=== PATIENT | female | born 1960 | race Caucasian/White ===

== ENCOUNTER 2019-03-08 16:18 | Inpatient (IN) ==
[2019-03-08] MEDS ORDERED: methylPREDNISolone SOD SUC 125 MG/2 ML VIAL IV STA (17:21)
[2019-03-08] MEDS ORDERED: LEVOFLOXACIN INJ 500 MG in PREMIX 1 EACH IV STA (17:21)
[2019-03-08] MEDS ORDERED: ALBUTEROL/IPRATROPIUM 3 ML NEB RESP TX STA ×3 (17:21→18:43)
[2019-03-08 17:34] LABS: Basophils # 0.1 10*3/uL (0.0-0.2); Basophils % 0.4 % (0.0-0.8); Eosinophils % 0.2 % (0.00-10.9); Hematocrit 49.5 VOL% (35.7-47.0); Hemoglobin 15.2 GM/DL (12.0-16.0); Immature Granulocytes % 0.6 %; Immature Granulocytes Absolute 0.07 #; Lymphocytes # 1.4 10*3/uL (1.4-4.0); Lymphocytes % 11.4 % (21.3-54.2); Mean Corpuscular HGB Conc 30.7 GM/DL (32-36); Mean Corpuscular Volume 91.2 FL (87-102); Mean Platelet Volume 9.7 FL (9.6-12.0); Monocytes % 3.3 % (1.7-12.7); Neutrophils % 84.1 % (38.7-73.9); Platelet Count 249 T/CUMM (130-400); Red Blood Count 5.43 MC/CUMM (3.8-5.5); Red Cell Distribution Width 15.8 % (9.3-17.3); White Blood Count 12.2 T/CUMM (4-12)
[2019-03-08 17:57] LABS: Albumin 3.5 G/DL (3.4-5.0); Bilirubin,Total 0.4 MG/DL (0.2-1.0); Calcium 8.8 MG/DL (8.5-10.1); Osmolality,Calculated 253.2 MOS/KG (273-304); Total Protein 7.4 G/DL (6.4-8.3)
[2019-03-08 18:05] LABS: ABG Base Excess 7.7 MMOL/L (-2.5-2.5); ABG HCO3 31.4 MMOL/L (20-26); ABG Oxygen Saturation 96.1 % (95-100); ABG PH 7.261 (7.35-7.45); ABG TCO2 34.7 MMOL/L (23-27); Allen Test Positive
[2019-03-08] MEDS ORDERED: NITROGLYCERIN SL 0.4 MG TABLET SL STA (18:44)
[2019-03-08] MEDS ORDERED: ACETAMINOPHEN 500 MG TABLET PO STA (19:10)
[2019-03-08] MEDS ORDERED: ACETAMINOPHEN 500 MG TABLET ONE (19:11)
[2019-03-08] MEDS ORDERED: ALBUTEROL 2.5 MG/3 ML NEB RESP TX PRN (19:34)
[2019-03-08] MEDS ORDERED: ACETAMINOPHEN 325 MG TABLET PO PRN (19:34)
[2019-03-08] MEDS ORDERED: ONDANSETRON 4 MG/2 ML VIAL IV PRN (19:34)
[2019-03-08] MEDS ORDERED: ALBUTEROL NEB SOLN 5 MG/ML 20 ML/BOTTLE CONT NEB STA (19:52)
[2019-03-08] MEDS: methylPREDNISolone SOD SUC 40 MG/1 ML VIAL IV SCH (21:28)
[2019-03-08] MEDS: ENOXAPARIN 40 MG/0.4 ML SYRINGE SUBCUT SCH (21:28)
[2019-03-08] MEDS ORDERED: hydrALAZINE 20 MG/1 ML VIAL IV PRN (22:48)
[2019-03-09] MEDS: ALBUTEROL/IPRATROPIUM 3 ML NEB RESP TX SCH ×4 (01:57→19:23)
[2019-03-09] MEDS: methylPREDNISolone SOD SUC 40 MG/1 ML VIAL IV SCH ×4 (04:27→21:03)
[2019-03-09 05:40] LABS: ABG PCO2 88.9 MM HG (35-48)
[2019-03-09 07:26] LABS: ABG Base Excess 10.6 MMOL/L (-2.5-2.5); ABG HCO3 34.2 MMOL/L (20-26); ABG Oxygen Saturation 93.2 % (95-100); ABG PH 7.329 (7.35-7.45); ABG PO2 68.8 MM HG (80-95); ABG TCO2 35.4 MMOL/L (23-27); Allen Test Positive; Pt O2 Delivery Device BIPAP
[2019-03-09 07:32] LABS: ABG PCO2 78.7 MM HG (35-48)
[2019-03-09 07:58] LABS: Hemoglobin 15.1 GM/DL (12.0-16.0); Immature Granulocytes % 0.4 %; Immature Granulocytes Absolute 0.03 #; Lymphocytes # 0.7 10*3/uL (1.4-4.0); Lymphocytes % 10.2 % (21.3-54.2); Mean Corpuscular HGB Conc 30.8 GM/DL (32-36); Mean Corpuscular Volume 90.1 FL (87-102); Mean Platelet Volume 10.3 FL (9.6-12.0); Monocytes % 1.7 % (1.7-12.7); Neutrophils % 87.7 % (38.7-73.9); Platelet Count 257 T/CUMM (130-400); Red Blood Count 5.44 MC/CUMM (3.8-5.5); Red Cell Distribution Width 15.2 % (9.3-17.3); White Blood Count 6.9 T/CUMM (4-12)
[2019-03-09 08:26] LABS: Osmolality,Calculated 264.4 MOS/KG (273-304)
[2019-03-09] MEDS: PANTOPRAZOLE 40 MG TABLET PO SCH (09:29)
[2019-03-09] MEDS: DULoxetine 30 MG CAPSULE PO SCH (09:29)
[2019-03-09] MEDS: MONTELUKAST 10 MG TABLET PO SCH (09:29)
[2019-03-09 10:04] LABS: Free T4 (Free Thyroxine) 0.92 NG/DL (0.76-1.46); Thyroid Stimulating Hormone 0.438 uIU/ml (0.358-3.74)
[2019-03-09] MEDS ORDERED: AMINOPHYLLINE 250 MG in SODIUM CHLORIDE 0.9% 100 ML IV ONE (10:30)
[2019-03-09] MEDS ORDERED: cefTRIAXone 1,000 MG in SYRINGE 1 EACH IV SCH (10:30)
[2019-03-09 11:26] LABS: ABG Base Excess 9.9 MMOL/L (-2.5-2.5); ABG HCO3 33.7 MMOL/L (20-26); ABG Oxygen Saturation 98.6 % (95-100); ABG PH 7.282 (7.35-7.45); ABG TCO2 36.4 MMOL/L (23-27); Allen Test Positive
[2019-03-09 11:31] LABS: ABG PCO2 89.2 MM HG (35-48)
[2019-03-09 13:01] LABS: ABG Base Excess 6.9 MMOL/L (-2.5-2.5); ABG HCO3 30.2 MMOL/L (20-26); ABG Oxygen Saturation 82.3 % (95-100); ABG PH 7.283 (7.35-7.45); ABG PO2 49.4 MM HG (80-95); ABG TCO2 33.1 MMOL/L (23-27); Allen Test Positive
[2019-03-09 13:03] LABS: ABG PCO2 80.7 MM HG (35-48)
[2019-03-09 13:58] LABS: Barbiturates Screen,Urine Negative (Negative); Benzodiazepines Screen,Urine Negative (Negative); Cannabinoid Screen,Urine Negative (Negative); Opiate Screen,Urine Negative (Negative); Phencyclidine Screen,Urine Negative (Negative)
[2019-03-09] MEDS ORDERED: AMINOPHYLLINE 500 MG in SODIUM CHLORIDE 0.9% 480 ML IV SCH (14:00)
[2019-03-09 15:32] LABS: ABG Base Excess 6.6 MMOL/L (-2.5-2.5); ABG HCO3 29.9 MMOL/L (20-26); ABG Oxygen Saturation 79.3 % (95-100); ABG PH 7.318 (7.35-7.45); ABG PO2 45.5 MM HG (80-95); ABG TCO2 31.4 MMOL/L (23-27); Allen Test Positive; Pt O2 Delivery Device BIPAP
[2019-03-09 15:36] LABS: ABG PCO2 71.1 MM HG (35-48)
[2019-03-09] MEDS ORDERED: LEVOFLOXACIN INJ 500 MG in PREMIX 1 EACH IV SCH (18:00)
[2019-03-09] MEDS: ENOXAPARIN 40 MG/0.4 ML SYRINGE SUBCUT SCH (21:03)
[2019-03-10] MEDS: ALBUTEROL/IPRATROPIUM 3 ML NEB RESP TX SCH ×4 (01:41→21:16)
[2019-03-10 03:53] LABS: ABG Base Excess 4.2 MMOL/L (-2.5-2.5); ABG HCO3 27.8 MMOL/L (20-26); ABG Oxygen Saturation 87.7 % (95-100); ABG PCO2 56.2 MM HG (35-48); ABG PH 7.359 (7.35-7.45); Allen Test Positive; Pt O2 Delivery Device BIPAP
[2019-03-10 04:03] LABS: Calcium 8.8 MG/DL (8.5-10.1); Osmolality,Calculated 267.4 MOS/KG (273-304)
[2019-03-10] MEDS: methylPREDNISolone SOD SUC 40 MG/1 ML VIAL IV SCH ×2 (04:08→09:06)
[2019-03-10 04:33] LABS: Basophils % 0.2 % (0.0-0.8); Hematocrit 49.8 VOL% (35.7-47.0); Hemoglobin 15.3 GM/DL (12.0-16.0); Immature Granulocytes % 0.6 %; Immature Granulocytes Absolute 0.06 #; Lymphocytes # 0.7 10*3/uL (1.4-4.0); Lymphocytes % 7.1 % (21.3-54.2); Mean Corpuscular HGB Conc 30.7 GM/DL (32-36); Mean Corpuscular Volume 90.5 FL (87-102); Mean Platelet Volume 10.2 FL (9.6-12.0); Neutrophils % 88.1 % (38.7-73.9); Platelet Count 268 T/CUMM (130-400); Red Cell Distribution Width 15.4 % (9.3-17.3)
[2019-03-10] MEDS: MONTELUKAST 10 MG TABLET PO SCH (09:03)
[2019-03-10] MEDS: DULoxetine 30 MG CAPSULE PO SCH (09:03)
[2019-03-10] MEDS: PANTOPRAZOLE 40 MG TABLET PO SCH (09:03)
[2019-03-10] MEDS: THEOPHYLLINE ER 300 MG TABLET PO SCH ×2 (10:39→18:12)
[2019-03-10] MEDS: ENOXAPARIN 40 MG/0.4 ML SYRINGE SUBCUT SCH (21:33)
[2019-03-10] MEDS ORDERED: methylPREDNISolone SOD SUC 40 MG/1 ML VIAL IV SCH (22:00)
[2019-03-11] MEDS: ALBUTEROL/IPRATROPIUM 3 ML NEB RESP TX SCH ×2 (02:01→06:55)
[2019-03-11 04:57] LABS: Basophils % 0.1 % (0.0-0.8); Eosinophils # 0.1 10*3/uL (0.0-0.87); Eosinophils % 0.4 % (0.00-10.9); Hematocrit 48.7 VOL% (35.7-47.0); Hemoglobin 15.1 GM/DL (12.0-16.0); Immature Granulocytes % 0.4 %; Immature Granulocytes Absolute 0.05 #; Lymphocytes # 2.9 10*3/uL (1.4-4.0); Lymphocytes % 20.9 % (21.3-54.2); Mean Corpuscular Volume 88.5 FL (87-102); Mean Platelet Volume 10.3 FL (9.6-12.0); Monocytes % 10.1 % (1.7-12.7); Neutrophils % 68.1 % (38.7-73.9); Platelet Count 280 T/CUMM (130-400); Red Cell Distribution Width 15.4 % (9.3-17.3)
[2019-03-11 05:19] LABS: Calcium 8.8 MG/DL (8.5-10.1)
[2019-03-11] MEDS ORDERED: LEVOFLOXACIN INJ 750 MG in PREMIX 1 EACH IV SCH (09:00)
[2019-03-11] MEDS ORDERED: POTASSIUM CHLORIDE 20 MEQ TABLET PO ONE (09:00)
[2019-03-11] MEDS: DULoxetine 30 MG CAPSULE PO SCH (09:29)
[2019-03-11] MEDS: PANTOPRAZOLE 40 MG TABLET PO SCH (09:29)
[2019-03-11] MEDS: THEOPHYLLINE ER 300 MG TABLET PO SCH (09:29)
[2019-03-11] MEDS: MONTELUKAST 10 MG TABLET PO SCH (09:30)
[2019-03-11] MEDS ORDERED: acetaZOLAMIDE 250 MG TABLET PO SCH (10:30)
[2019-03-11 11:07] LABS: Apearance,Urine CLEAR (Clear); Bilirubin,Urine Negative (Negative); Blood, Urine Negative (Negative); Glucose,Urine (UA) Negative (Negative); Ketones,Urine Negative (Negative); Mucus,Urine Occasional /LPF (Occasional); Nitrite,Urine Negative (Negative); Protein,Urine Negative; RBC,Urine 1 /HPF (0-4); Squamous Epithelial Cell,Urine Occasional /HPF (0-10); Urine Color Yellow (Yellow); Urine Specific Gravity 1.013 (1.001-1.035); Urine Urobilinogen < 2.0 EU/DL (0.2-1.0); WBC,Urine 1 /HPF (0-6)
[2019-03-11 11:31] VITALS: BP 126/87
[2019-03-12] MEDS ORDERED: POTASSIUM CHLORIDE 10 MEQ TABLET PO SCH (09:00)
== END 2019-03-11 13:35 | disposition home or self-care (01) | DRG 133 ==
LOC: N.ED 16:18 → SUATTDRO 19:34 → N.EDINP 19:34 → N.ICU 20:04 → N.2E 03-10 11:54
PROVIDERS: ADMIT Internal Medicine; ATTEND Internal Medicine

== ENCOUNTER 2019-07-05 18:47 | Inpatient (IN) ==
[2019-07-05] MEDS ORDERED: PANTOPRAZOLE 40 MG VIAL IV STA (20:41)
[2019-07-05] MEDS ORDERED: ONDANSETRON 4 MG/2 ML VIAL IV STA (20:41)
[2019-07-05] MEDS ORDERED: ALBUTEROL/IPRATROPIUM 3 ML NEB RESP TX STA (20:41)
[2019-07-05] MEDS ORDERED: SODIUM CHLORIDE 0.9% 500 ML IV STA (20:41)
[2019-07-05] MEDS ORDERED: HYDROmorphone 2 MG/1 ML VIAL IV STA (20:41)
[2019-07-05] MEDS ORDERED: methylPREDNISolone SOD SUC 125 MG/2 ML VIAL IV STA (20:41)
[2019-07-05 21:04] LABS: Basophils # 0.1 10*3/uL (0.0-0.2); Basophils % 0.6 % (0.0-0.8); Eosinophils # 1.6 10*3/uL (0.0-0.87); Eosinophils % 17.1 % (0.00-10.9); Hematocrit 48.1 VOL% (35.7-47.0); Hemoglobin 14.9 GM/DL (12.0-16.0); Immature Granulocytes % 0.3 %; Immature Granulocytes Absolute 0.03 #; Lymphocytes # 2.8 10*3/uL (1.4-4.0); Lymphocytes % 29.3 % (21.3-54.2); Mean Corpuscular Volume 89.6 FL (87-102); Mean Platelet Volume 9.3 FL (9.6-12.0); Monocytes % 9.6 % (1.7-12.7); Neutrophils % 43.1 % (38.7-73.9); Platelet Count 282 T/CUMM (130-400); Red Blood Count 5.37 MC/CUMM (3.8-5.5); Red Cell Distribution Width 14.6 % (9.3-17.3); White Blood Count 9.4 T/CUMM (4-12)
[2019-07-05 21:24] LABS: Albumin 3.6 G/DL (3.4-5.0); Bilirubin,Total 0.5 MG/DL (0.2-1.0); Calcium 8.6 MG/DL (8.5-10.1); Osmolality,Calculated 267.1 MOS/KG (273-304)
[2019-07-05 21:27] LABS: Band Neutrophils 2 % (0-10); Eosinophils 16 % (0-10); Lymphocytes 31 % (20-55); Segmented Neutrophils 46 % (50-85); Total Cells Counted 100
[2019-07-05 21:28] LABS: Anisocytosis 1+; Platelet Estimate Normal; Target Cells Few
[2019-07-05] MEDS ORDERED: hydrALAZINE 20 MG/1 ML VIAL ONE (21:40)
[2019-07-05] MEDS ORDERED: hydrALAZINE 20 MG/1 ML VIAL IV STA (21:48)
[2019-07-05] MEDS ORDERED: ALBUTEROL NEB SOLN 5 MG/ML 20 ML/BOTTLE CONT NEB STA (22:15)
[2019-07-05 22:41] LABS: ABG Base Excess 0.6 MMOL/L (-2.5-2.5); ABG HCO3 24.9 MMOL/L (20-26); ABG Oxygen Saturation 93.4 % (95-100); ABG PO2 86.9 MM HG (80-95); ABG TCO2 33.1 MMOL/L (23-27)
[2019-07-05 22:45] LABS: ABG PH 7.117 (7.35-7.45)
[2019-07-05] MEDS ORDERED: ETOMIDATE 20 MG/10 ML VIAL IV ONE (22:49)
[2019-07-05] MEDS ORDERED: VECURONIUM 10 MG VIAL IV ONE (22:49)
[2019-07-05] MEDS ORDERED: ETOMIDATE 20 MG/10 ML VIAL IV STA (23:00)
[2019-07-05] MEDS ORDERED: VECURONIUM 10 MG VIAL IV STA (23:00)
[2019-07-06 00:16] LABS: Apearance,Urine CLEAR (Clear); Bilirubin,Urine Negative (Negative); Blood, Urine Negative (Negative); Glucose,Urine (UA) Negative (Negative); Hyaline Casts,Urine 4 /LPF (0-3); Ketones,Urine Negative (Negative); Mucus,Urine Occasional /LPF (Occasional); Nitrite,Urine Negative (Negative); Protein,Urine Negative; RBC,Urine 1 /HPF (0-4); Squamous Epithelial Cell,Urine Occasional /HPF (0-10); Urine Color Yellow (Yellow); Urine Specific Gravity > 1.060 (1.001-1.035); Urine Urobilinogen < 2.0 EU/DL (0.2-1.0); WBC,Urine 1 /HPF (0-6)
[2019-07-06] MEDS ORDERED: ALBUTEROL 2.5 MG/3 ML NEB RESP TX PRN (00:19)
[2019-07-06] MEDS ORDERED: hydrALAZINE 20 MG/1 ML VIAL IV PRN (00:29)
[2019-07-06] MEDS ORDERED: ONDANSETRON 4 MG/2 ML VIAL IV PRN (00:29)
[2019-07-06 01:12] LABS: ABG Base Excess 4.8 MMOL/L (-2.5-2.5); ABG HCO3 28.8 MMOL/L (20-26); ABG PCO2 65.4 MM HG (35-48); ABG PH 7.322 (7.35-7.45)
[2019-07-06] MEDS: ALBUTEROL/IPRATROPIUM 3 ML NEB RESP TX SCH ×4 (02:05→19:18)
[2019-07-06 03:10] LABS: ABG Base Excess 5.5 MMOL/L (-2.5-2.5); ABG HCO3 29.4 MMOL/L (20-26); ABG Oxygen Saturation 99.8 % (95-100); ABG PCO2 64.4 MM HG (35-48); ABG PH 7.334 (7.35-7.45); ABG TCO2 29.3 MMOL/L (23-27); Allen Test Positive; Pt O2 Delivery Device Ventilator
[2019-07-06 05:42] LABS: Basophils % 0.1 % (0.0-0.8); Hematocrit 43.7 VOL% (35.7-47.0); Hemoglobin 13.7 GM/DL (12.0-16.0); Immature Granulocytes % 0.2 %; Immature Granulocytes Absolute 0.02 #; Lymphocytes # 0.5 10*3/uL (1.4-4.0); Mean Corpuscular HGB Conc 31.4 GM/DL (32-36); Mean Corpuscular Volume 88.3 FL (87-102); Mean Platelet Volume 9.7 FL (9.6-12.0); Monocytes % 1.2 % (1.7-12.7); Neutrophils % 93.5 % (38.7-73.9); Platelet Count 253 T/CUMM (130-400); Red Blood Count 4.95 MC/CUMM (3.8-5.5); Red Cell Distribution Width 14.4 % (9.3-17.3)
[2019-07-06 06:02] LABS: Albumin 3.1 G/DL (3.4-5.0); Calcium 8.6 MG/DL (8.5-10.1); Osmolality,Calculated 269.2 MOS/KG (273-304); Total Protein 6.7 G/DL (6.4-8.3)
[2019-07-06 06:04] LABS: Band Neutrophils 1 % (0-10); Hypochromasia Slight; Lymphocytes 5 % (20-55); Platelet Estimate Adequate; Segmented Neutrophils 93 % (50-85); Total Cells Counted 100
[2019-07-06] MEDS ORDERED: THEOPHYLLINE ER 300 MG TABLET PO SCH (08:00)
[2019-07-06] MEDS ORDERED: methylPREDNISolone SOD SUC 40 MG/1 ML VIAL IV SCH (08:00)
[2019-07-06] MEDS: DULoxetine 30 MG CAPSULE PO SCH (09:06)
[2019-07-06] MEDS: ENOXAPARIN 40 MG/0.4 ML SYRINGE SUBCUT SCH (09:07)
[2019-07-06] MEDS: methylPREDNISolone SOD SUC 40 MG/1 ML VIAL IV SCH ×2 (09:07→20:31)
[2019-07-06] MEDS: MONTELUKAST 10 MG TABLET PO SCH (09:07)
[2019-07-06] MEDS: DEXTROSE 5% NACL 0.9% 1,000 ML IV SCH ×2 (09:07→17:59)
[2019-07-06] MEDS: NICOTINE 21 MG/24 HR PATCH TRANSDERM PRN (09:12)
[2019-07-06] MEDS: THEOPHYLLINE 5.33 MG/ML 30 ML/BOTTLE PER TUBE SCH ×3 (09:54→20:30)
[2019-07-06 10:52] LABS: ABG HCO3 33.8 MMOL/L (20-26); ABG Oxygen Saturation 97.3 % (95-100); ABG PCO2 42.8 MM HG (35-48); ABG PH 7.512 (7.35-7.45); ABG PO2 78.1 MM HG (80-95); ABG TCO2 29.4 MMOL/L (23-27); Allen Test Positive; Pt O2 Delivery Device Ventilator
[2019-07-06 11:12] LABS: Barbiturates Screen,Urine Negative (Negative); Benzodiazepines Screen,Urine Negative (Negative); Cannabinoid Screen,Urine Negative (Negative); Opiate Screen,Urine Negative (Negative); Phencyclidine Screen,Urine Negative (Negative)
[2019-07-06] MEDS: cefTRIAXone 1,000 MG in SYRINGE 1 EACH IV SCH (15:11)
[2019-07-06] MEDS: CLINDAMYCIN INJ 300 MG in PREMIX 1 EACH IV SCH ×2 (15:12→20:44)
[2019-07-06] MEDS: ACETAMINOPHEN 325 MG/10.15 ML UDCUP PO PRN (17:27)
[2019-07-06] MEDS: PANTOPRAZOLE 40 MG VIAL IV SCH (20:31)
[2019-07-07] MEDS: ALBUTEROL/IPRATROPIUM 3 ML NEB RESP TX SCH ×4 (00:42→19:32)
[2019-07-07] MEDS: THEOPHYLLINE 5.33 MG/ML 30 ML/BOTTLE PER TUBE SCH ×4 (02:02→20:15)
[2019-07-07] MEDS: CLINDAMYCIN INJ 300 MG in PREMIX 1 EACH IV SCH ×4 (02:04→20:21)
[2019-07-07 04:56] LABS: ABG Base Excess 6.9 MMOL/L (-2.5-2.5); ABG HCO3 30.7 MMOL/L (20-26); ABG Oxygen Saturation 99.6 % (95-100); ABG PCO2 36.6 MM HG (35-48); ABG PH 7.521 (7.35-7.45); ABG TCO2 26.2 MMOL/L (23-27); Allen Test Positive; Pt O2 Delivery Device Ventilator
[2019-07-07] MEDS: DEXTROSE 5% NACL 0.9% 1,000 ML IV SCH ×2 (05:05→15:11)
[2019-07-07 05:37] LABS: Basophils % 0.2 % (0.0-0.8); Eosinophils % 0.1 % (0.00-10.9); Hematocrit 38.2 VOL% (35.7-47.0); Hemoglobin 12.2 GM/DL (12.0-16.0); Immature Granulocytes % 0.4 %; Immature Granulocytes Absolute 0.04 #; Lymphocytes # 1.5 10*3/uL (1.4-4.0); Lymphocytes % 13.5 % (21.3-54.2); Mean Corpuscular HGB Conc 31.9 GM/DL (32-36); Mean Corpuscular Volume 85.5 FL (87-102); Mean Platelet Volume 10.7 FL (9.6-12.0); Monocytes % 6.7 % (1.7-12.7); Neutrophils % 79.1 % (38.7-73.9); Platelet Count 258 T/CUMM (130-400); Red Blood Count 4.47 MC/CUMM (3.8-5.5); Red Cell Distribution Width 14.7 % (9.3-17.3); White Blood Count 11.4 T/CUMM (4-12)
[2019-07-07 05:46] LABS: PT Patient Result 10.6 SECS (9.6-12.2); Partial Thromboplastin Time 24.5 SECS (20.8-36.0)
[2019-07-07 06:18] LABS: Osmolality,Calculated 282.1 MOS/KG (273-304)
[2019-07-07] MEDS: methylPREDNISolone SOD SUC 40 MG/1 ML VIAL IV SCH ×2 (07:29→20:15)
[2019-07-07] MEDS: ENOXAPARIN 40 MG/0.4 ML SYRINGE SUBCUT SCH (07:29)
[2019-07-07] MEDS: NICOTINE 21 MG/24 HR PATCH TRANSDERM PRN (08:45)
[2019-07-07] MEDS: DULoxetine 30 MG CAPSULE PO SCH (08:46)
[2019-07-07] MEDS: MONTELUKAST 10 MG TABLET PO SCH (08:46)
[2019-07-07] MEDS: cefTRIAXone 1,000 MG in SYRINGE 1 EACH IV SCH (15:00)
[2019-07-07] MEDS: PANTOPRAZOLE 40 MG VIAL IV SCH (20:15)
[2019-07-08] MEDS: ALBUTEROL/IPRATROPIUM 3 ML NEB RESP TX SCH ×5 (00:40→23:50)
[2019-07-08] MEDS: DEXTROSE 5% NACL 0.9% 1,000 ML IV SCH ×3 (02:16→21:13)
[2019-07-08] MEDS: CLINDAMYCIN INJ 300 MG in PREMIX 1 EACH IV SCH ×4 (03:00→21:01)
[2019-07-08] MEDS: THEOPHYLLINE 5.33 MG/ML 30 ML/BOTTLE PER TUBE SCH ×4 (03:00→21:00)
[2019-07-08 04:39] LABS: ABG Oxygen Saturation 99.3 % (95-100); ABG PH 7.471 (7.35-7.45); ABG TCO2 24.5 MMOL/L (23-27); Allen Test Positive; Pt O2 Delivery Device Ventilator
[2019-07-08 06:10] LABS: Basophils % 0.3 % (0.0-0.8); Eosinophils # 0.1 10*3/uL (0.0-0.87); Eosinophils % 0.5 % (0.00-10.9); Hematocrit 35.8 VOL% (35.7-47.0); Hemoglobin 11.4 GM/DL (12.0-16.0); Immature Granulocytes % 0.4 %; Immature Granulocytes Absolute 0.04 #; Lymphocytes # 1.8 10*3/uL (1.4-4.0); Lymphocytes % 16.4 % (21.3-54.2); Mean Corpuscular HGB Conc 31.8 GM/DL (32-36); Mean Corpuscular Volume 86.7 FL (87-102); Mean Platelet Volume 10.2 FL (9.6-12.0); Monocytes % 7.3 % (1.7-12.7); Neutrophils % 75.1 % (38.7-73.9); Platelet Count 236 T/CUMM (130-400); Red Blood Count 4.13 MC/CUMM (3.8-5.5); Red Cell Distribution Width 14.9 % (9.3-17.3); White Blood Count 10.8 T/CUMM (4-12)
[2019-07-08 06:35] LABS: Osmolality,Calculated 285.8 MOS/KG (273-304)
[2019-07-08] MEDS: MORPHINE 4 MG/1 ML VIAL IV PRN ×5 (08:01→22:44)
[2019-07-08] MEDS: methylPREDNISolone SOD SUC 40 MG/1 ML VIAL IV SCH ×2 (08:03→21:02)
[2019-07-08] MEDS: ENOXAPARIN 40 MG/0.4 ML SYRINGE SUBCUT SCH (08:03)
[2019-07-08] MEDS: MONTELUKAST 10 MG TABLET PO SCH (08:33)
[2019-07-08 10:50] LABS: ABG Base Excess 2.6 MMOL/L (-2.5-2.5); ABG HCO3 26.7 MMOL/L (20-26); ABG Oxygen Saturation 96.2 % (95-100); ABG PCO2 53.4 MM HG (35-48); ABG PO2 87.1 MM HG (80-95)
[2019-07-08] MEDS: DULoxetine 30 MG CAPSULE PO SCH (11:53)
[2019-07-08] MEDS: ACETAMINOPHEN 325 MG/10.15 ML UDCUP PO PRN ×2 (13:45→21:04)
[2019-07-08] MEDS: cefTRIAXone 1,000 MG in SYRINGE 1 EACH IV SCH (14:15)
[2019-07-08] MEDS: PANTOPRAZOLE 40 MG VIAL IV SCH (21:01)
[2019-07-09] MEDS: CLINDAMYCIN INJ 300 MG in PREMIX 1 EACH IV SCH ×4 (04:00→21:17)
[2019-07-09 04:01] LABS: Allen Test Positive
[2019-07-09] MEDS: THEOPHYLLINE 5.33 MG/ML 30 ML/BOTTLE PER TUBE SCH ×4 (04:04→21:17)
[2019-07-09 04:09] LABS: ABG Base Excess 1.1 MMOL/L (-2.5-2.5); ABG HCO3 28.4 MMOL/L (20-26); ABG Oxygen Saturation 97.3 % (95-100); ABG PCO2 57.4 MM HG (35-48); ABG PH 7.312 (7.35-7.45); ABG PO2 94.6 MM HG (80-95); ABG TCO2 30.1 MMOL/L (23-27)
[2019-07-09] MEDS: NICOTINE 21 MG/24 HR PATCH TRANSDERM PRN (05:40)
[2019-07-09 05:53] LABS: Basophils % 0.4 % (0.0-0.8); Eosinophils % 0.2 % (0.00-10.9); Hematocrit 39.4 VOL% (35.7-47.0); Hemoglobin 12.1 GM/DL (12.0-16.0); Immature Granulocytes Absolute 0.08 #; Lymphocytes # 1.2 10*3/uL (1.4-4.0); Lymphocytes % 14.7 % (21.3-54.2); Mean Corpuscular HGB Conc 30.7 GM/DL (32-36); Mean Platelet Volume 10.6 FL (9.6-12.0); Monocytes % 7.7 % (1.7-12.7); Platelet Count 280 T/CUMM (130-400); Red Blood Count 4.38 MC/CUMM (3.8-5.5); Red Cell Distribution Width 15.4 % (9.3-17.3); White Blood Count 8.3 T/CUMM (4-12)
[2019-07-09 06:08] LABS: Calcium 7.8 MG/DL (8.5-10.1)
[2019-07-09] MEDS: DEXTROSE 5% NACL 0.9% 1,000 ML IV SCH (06:28)
[2019-07-09] MEDS: ALBUTEROL/IPRATROPIUM 3 ML NEB RESP TX SCH ×3 (06:59→19:36)
[2019-07-09] MEDS: methylPREDNISolone SOD SUC 40 MG/1 ML VIAL IV SCH ×2 (08:07→21:18)
[2019-07-09] MEDS: MORPHINE 4 MG/1 ML VIAL IV PRN ×2 (08:08→11:26)
[2019-07-09] MEDS: ENOXAPARIN 40 MG/0.4 ML SYRINGE SUBCUT SCH (08:08)
[2019-07-09] MEDS: MONTELUKAST 10 MG TABLET PO SCH (08:34)
[2019-07-09] MEDS: DULoxetine 30 MG CAPSULE PO SCH (08:34)
[2019-07-09] MEDS ORDERED: ACETAMINOPHEN 325 MG TABLET PO PRN (11:42)
[2019-07-09] MEDS: cefTRIAXone 1,000 MG in SYRINGE 1 EACH IV SCH (14:34)
[2019-07-09] MEDS: diphenhydrAMINE CAP 25 MG CAPSULE PO PRN (19:05)
[2019-07-10] MEDS: ALBUTEROL/IPRATROPIUM 3 ML NEB RESP TX SCH ×3 (00:29→14:18)
[2019-07-10] MEDS: diphenhydrAMINE CAP 25 MG CAPSULE PO PRN (01:54)
[2019-07-10] MEDS: CLINDAMYCIN INJ 300 MG in PREMIX 1 EACH IV SCH ×2 (03:41→11:00)
[2019-07-10] MEDS: THEOPHYLLINE 5.33 MG/ML 30 ML/BOTTLE PER TUBE SCH ×3 (03:41→15:14)
[2019-07-10 05:37] LABS: Basophils % 0.3 % (0.0-0.8); Eosinophils % 0.4 % (0.00-10.9); Hematocrit 39.6 VOL% (35.7-47.0); Hemoglobin 12.1 GM/DL (12.0-16.0); Immature Granulocytes % 0.6 %; Immature Granulocytes Absolute 0.05 #; Lymphocytes # 1.6 10*3/uL (1.4-4.0); Lymphocytes % 20.1 % (21.3-54.2); Mean Corpuscular HGB Conc 30.6 GM/DL (32-36); Mean Corpuscular Volume 90.4 FL (87-102); Mean Platelet Volume 10.1 FL (9.6-12.0); Monocytes % 7.1 % (1.7-12.7); Neutrophils % 71.5 % (38.7-73.9); Platelet Count 261 T/CUMM (130-400); Red Blood Count 4.38 MC/CUMM (3.8-5.5); Red Cell Distribution Width 14.9 % (9.3-17.3); White Blood Count 7.9 T/CUMM (4-12)
[2019-07-10 06:13] LABS: Calcium 8.2 MG/DL (8.5-10.1); Osmolality,Calculated 280.1 MOS/KG (273-304)
[2019-07-10] MEDS ORDERED: BISACODYL 10 MG SUPP RECTAL ONE (08:54)
[2019-07-10] MEDS ORDERED: DOCUSATE/SENNA 50-8.6 MG TABLET PO ONE (08:55)
[2019-07-10] MEDS ORDERED: METOCLOPRAMIDE 10 MG/2 ML VIAL IV ONE ×2 (08:56→12:29)
[2019-07-10] MEDS ORDERED: PANTOPRAZOLE 40 MG TABLET PO SCH (09:00)
[2019-07-10] MEDS ORDERED: POLYETHYLENE GLYCOL POWDER 17 GM PACK PO SCH (09:00)
[2019-07-10] MEDS ORDERED: predniSONE 20 MG TABLET PO SCH (09:00)
[2019-07-10] MEDS: MONTELUKAST 10 MG TABLET PO SCH (09:50)
[2019-07-10] MEDS: ENOXAPARIN 40 MG/0.4 ML SYRINGE SUBCUT SCH (09:50)
[2019-07-10] MEDS: DULoxetine 30 MG CAPSULE PO SCH (09:51)
[2019-07-10] MEDS: NICOTINE 21 MG/24 HR PATCH TRANSDERM PRN (11:06)
[2019-07-10] MEDS ORDERED: SODIUM PHOSPHATE ENEMA 133 ML BOTTLE RECTAL ONE (11:56)
[2019-07-10] MEDS ORDERED: MAGNESIUM CITRATE 300 ML BOTTLE PO ONE (12:29)
[2019-07-10] MEDS ORDERED: CLINDAMYCIN 300 MG CAPSULE PO SCH (14:00)
[2019-07-10] MEDS ORDERED: METOCLOPRAMIDE 10 MG/10 ML UDCUP PO ONE (14:34)
[2019-07-10 16:40] VITALS: BP 146/87
== END 2019-07-10 17:38 | disposition home health service (06) | DRG 133 ==
LOC: N.ED 18:47 → N.EDINP 07-06 00:19 → SUATTDRO 07-06 00:19 → N.ICU 07-06 01:15 → N.2E 07-09 15:46
PROVIDERS: ADMIT Internal Medicine; ATTEND Internal Medicine

== ENCOUNTER 2021-04-10 19:22 | Inpatient (IN) ==
[2021-04-10] MEDS ORDERED: methylPREDNISolone SOD SUC 125 MG/2 ML VIAL IV STA (20:19)
[2021-04-10] MEDS ORDERED: ALBUTEROL/IPRATROPIUM 3 ML NEB RESP TX STA (20:19)
[2021-04-10 20:55] LABS: Basophils # 0.1 10*3/uL (0.0-0.2); Basophils % 0.4 % (0.0-0.8); Eosinophils # 0.7 10*3/uL (0.0-0.87); Eosinophils % 5.4 % (0.00-10.9); Hematocrit 45.2 VOL% (35.7-47.0); Immature Granulocytes % 0.4 %; Immature Granulocytes Absolute 0.06 #; Lymphocytes # 1.7 10*3/uL (1.4-4.0); Lymphocytes % 12.8 % (21.3-54.2); Mean Corpuscular HGB Conc 29.9 GM/DL (32-36); Mean Corpuscular Volume 86.9 FL (87-102); Mean Platelet Volume 9.9 FL (9.6-12.0); Monocytes % 6.5 % (1.7-12.7); Neutrophils % 74.5 % (38.7-73.9); Platelet Count 301 T/CUMM (130-400); Red Cell Distribution Width 15.5 % (9.3-17.3); White Blood Count 13.5 T/CUMM (4-12)
[2021-04-10 21:06] LABS: Hemoglobin 13.5 GM/DL (12.0-16.0)
[2021-04-10 21:16] LABS: Alanine Aminotransferase 34 U/L (13-56); Albumin 3.6 G/DL (3.4-5.0); Alkaline Phosphatase 93 U/L (45-117); Aspartate Amino Transferase 28 U/L (0-37); Bilirubin,Total < 0.39 MG/DL (0.20-1.00); Blood Urea Nitrogen 14 MG/DL (7-18); Calcium 9.2 MG/DL (8.5-10.1); Carbon Dioxide 33 MMOL/L (21-32); Estimated Glom Filtration Rate 114 ML/MIN; Glucose 111 MG/DL (74-106); Osmolality,Calculated 278.5 MOS/KG (273-304); Potassium 4.2 MMOL/L (3.5-5.1); Sodium 139 MMOL/L (136-145); Total Protein 7.1 G/DL (6.4-8.2)
[2021-04-10] MEDS ORDERED: cefTRIAXone 1,000 MG in SODIUM CHLORIDE 0.9% 100 ML IV STA (22:02)
[2021-04-10] MEDS ORDERED: diphenhydrAMINE CAP 25 MG CAPSULE PO PRN (22:19)
[2021-04-10] MEDS ORDERED: ALBUTEROL 2.5 MG/3 ML NEB RESP TX PRN (22:19)
[2021-04-10] MEDS ORDERED: GLUCAGON 1 MG VIAL IM PRN (22:19)
[2021-04-10] MEDS ORDERED: guaiFENesin/DM ER 600-30 MG TABLET PO PRN (22:19)
[2021-04-10] MEDS ORDERED: DEXTROSE 50% 25 GM/50 ML VIAL IV PRN (22:19)
[2021-04-10] MEDS ORDERED: ZALEPLON 5 MG CAPSULE PO PRN (22:19)
[2021-04-10] MEDS ORDERED: hydrALAZINE 20 MG/1 ML VIAL IV PRN (22:19)
[2021-04-10] MEDS ORDERED: DOCUSATE SODIUM 100 MG CAPSULE PO PRN (22:19)
[2021-04-10] MEDS ORDERED: NICOTINE 21 MG/24 HR PATCH TRANSDERM PRN (22:19)
[2021-04-10] MEDS ORDERED: ONDANSETRON 4 MG/2 ML VIAL IV PRN (22:19)
[2021-04-10] MEDS: ARFORMOTEROL 15 MCG/2 ML NEB RESP TX SCH (22:47)
[2021-04-10] MEDS: BUDESONIDE 0.5 MG/2 ML NEB RESP TX SCH (22:47)
[2021-04-11] MEDS: ALBUTEROL/IPRATROPIUM 3 ML NEB RESP TX SCH ×4 (00:48→19:28)
[2021-04-11] MEDS: AZITHROMYCIN INJ 500 MG in SODIUM CHLORIDE 0.9% 250 ML IV SCH (01:00)
[2021-04-11] MEDS ORDERED: methylPREDNISolone SOD SUC 125 MG/2 ML VIAL IV SCH (05:00)
[2021-04-11] MEDS: BUDESONIDE 0.5 MG/2 ML NEB RESP TX SCH (07:15)
[2021-04-11] MEDS: ARFORMOTEROL 15 MCG/2 ML NEB RESP TX SCH (07:15)
[2021-04-11 07:36] LABS: Basophils % 0.2 % (0.0-0.8); Hematocrit 45.4 VOL% (35.7-47.0); Hemoglobin 13.8 GM/DL (12.0-16.0); Immature Granulocytes % 0.7 %; Immature Granulocytes Absolute 0.07 #; Lymphocytes % 10.8 % (21.3-54.2); Mean Corpuscular HGB Conc 30.4 GM/DL (32-36); Mean Corpuscular Volume 87.6 FL (87-102); Mean Platelet Volume 9.7 FL (9.6-12.0); Neutrophils % 87.3 % (38.7-73.9); Platelet Count 309 T/CUMM (130-400); Red Blood Count 5.18 MC/CUMM (3.8-5.5); Red Cell Distribution Width 15.3 % (9.3-17.3); White Blood Count 9.5 T/CUMM (4-12)
[2021-04-11 07:58] LABS: Osmolality,Calculated 273.8 MOS/KG (273-304); Potassium 4.3 MMOL/L (3.5-5.1)
[2021-04-11] MEDS: SERTRALINE 100 MG TABLET PO SCH (08:54)
[2021-04-11] MEDS: MONTELUKAST 10 MG TABLET PO SCH (08:54)
[2021-04-11] MEDS: PANTOPRAZOLE 40 MG TABLET PO SCH (08:55)
[2021-04-11] MEDS: ENOXAPARIN 40 MG/0.4 ML SYRINGE SUBCUT SCH (08:55)
[2021-04-11] MEDS: ALBUTEROL 0.4 MG/ML 30 ML/BOTTLE PO SCH ×3 (08:55→21:24)
[2021-04-11] MEDS ORDERED: acetaZOLAMIDE 250 MG TABLET PO SCH (09:00)
[2021-04-11] MEDS ORDERED: INFLUENZA VIRUS VACCINE 0.5 ML SYRINGE IM ONE (09:00)
[2021-04-11] MEDS ORDERED: PANTOPRAZOLE 40 MG TABLET PO SCH (09:00)
[2021-04-11 10:02] LABS: ABG Base Excess 3.9 MMOL/L (-2.5-2.5); ABG HCO3 27.7 MMOL/L (20-26); ABG Oxygen Saturation 91.2 % (95-100); ABG PH 7.314 (7.35-7.45); ABG PO2 61.7 MM HG (80-95); ABG TCO2 28.4 MMOL/L (23-27); Allen Test Positive
[2021-04-11] MEDS: ACETAMINOPHEN 325 MG TABLET PO PRN ×3 (10:27→21:22)
[2021-04-11] MEDS: methylPREDNISolone SOD SUC 40 MG/1 ML VIAL IV SCH ×2 (12:32→21:24)
[2021-04-11] MEDS ORDERED: ACETYLCYSTEINE 20% 800 MG/4 ML VIAL ONE (13:00)
[2021-04-11] MEDS: ACETYLCYSTEINE 20% 800 MG/4 ML VIAL RESP TX SCH (13:38)
[2021-04-11] MEDS: acetaZOLAMIDE 250 MG TABLET PO SCH (21:22)
[2021-04-11] MEDS: cefTRIAXone 1,000 MG in SODIUM CHLORIDE 0.9% 100 ML IV SCH (21:23)
[2021-04-12] MEDS: ALBUTEROL/IPRATROPIUM 3 ML NEB RESP TX SCH ×4 (00:30→20:19)
[2021-04-12] MEDS: ACETYLCYSTEINE 20% 800 MG/4 ML VIAL RESP TX SCH ×3 (00:30→15:35)
[2021-04-12] MEDS: AZITHROMYCIN INJ 500 MG in SODIUM CHLORIDE 0.9% 250 ML IV SCH ×2 (02:44→23:52)
[2021-04-12 03:46] LABS: ABG HCO3 27.9 MMOL/L (20-26); ABG Oxygen Saturation 96.6 % (95-100); ABG PCO2 63.5 MM HG (35-48); ABG PH 7.315 (7.35-7.45); ABG PO2 87.7 MM HG (80-95); ABG TCO2 28.6 MMOL/L (23-27); Allen Test Positive
[2021-04-12] MEDS: methylPREDNISolone SOD SUC 40 MG/1 ML VIAL IV SCH ×3 (05:26→22:29)
[2021-04-12 05:35] LABS: Basophils % 0.1 % (0.0-0.8); Hematocrit 42.8 VOL% (35.7-47.0); Hemoglobin 13.1 GM/DL (12.0-16.0); Immature Granulocytes % 0.7 %; Immature Granulocytes Absolute 0.08 #; Lymphocytes # 1.7 10*3/uL (1.4-4.0); Lymphocytes % 14.8 % (21.3-54.2); Mean Corpuscular HGB Conc 30.6 GM/DL (32-36); Mean Corpuscular Volume 87.3 FL (87-102); Mean Platelet Volume 9.9 FL (9.6-12.0); Monocytes % 6.1 % (1.7-12.7); Neutrophils % 78.3 % (38.7-73.9); Platelet Count 304 T/CUMM (130-400); Red Cell Distribution Width 15.3 % (9.3-17.3); White Blood Count 11.3 T/CUMM (4-12)
[2021-04-12 05:52] LABS: Calcium 8.4 MG/DL (8.5-10.1); Potassium 3.9 MMOL/L (3.5-5.1)
[2021-04-12] MEDS: PANTOPRAZOLE 40 MG TABLET PO SCH (09:53)
[2021-04-12] MEDS: SERTRALINE 100 MG TABLET PO SCH (09:53)
[2021-04-12] MEDS: MONTELUKAST 10 MG TABLET PO SCH (09:53)
[2021-04-12] MEDS: acetaZOLAMIDE 250 MG TABLET PO SCH ×2 (09:53→22:29)
[2021-04-12] MEDS: ALBUTEROL 0.4 MG/ML 30 ML/BOTTLE PO SCH ×3 (09:53→22:29)
[2021-04-12] MEDS: ACETAMINOPHEN 325 MG TABLET PO PRN ×2 (09:53→13:50)
[2021-04-12] MEDS: ENOXAPARIN 40 MG/0.4 ML SYRINGE SUBCUT SCH (09:55)
[2021-04-12] MEDS: cefTRIAXone 1,000 MG in SODIUM CHLORIDE 0.9% 100 ML IV SCH (22:29)
[2021-04-13] MEDS: ALBUTEROL/IPRATROPIUM 3 ML NEB RESP TX SCH ×2 (00:55→07:30)
[2021-04-13] MEDS: ACETYLCYSTEINE 20% 800 MG/4 ML VIAL RESP TX SCH ×2 (00:55→07:30)
[2021-04-13 04:25] LABS: Basophils % 0.1 % (0.0-0.8); Hematocrit 43.2 VOL% (35.7-47.0); Hemoglobin 13.1 GM/DL (12.0-16.0); Immature Granulocytes % 0.8 %; Immature Granulocytes Absolute 0.14 #; Lymphocytes # 1.1 10*3/uL (1.4-4.0); Lymphocytes % 6.5 % (21.3-54.2); Mean Corpuscular HGB Conc 30.3 GM/DL (32-36); Mean Corpuscular Volume 87.8 FL (87-102); Monocytes % 2.5 % (1.7-12.7); Neutrophils % 90.1 % (38.7-73.9); Platelet Count 293 T/CUMM (130-400); Red Blood Count 4.92 MC/CUMM (3.8-5.5); Red Cell Distribution Width 15.5 % (9.3-17.3); White Blood Count 16.5 T/CUMM (4-12)
[2021-04-13 04:39] LABS: Calcium 8.1 MG/DL (8.5-10.1); Potassium 3.7 MMOL/L (3.5-5.1)
[2021-04-13 04:51] LABS: Osmolality,Calculated 276.7 MOS/KG (273-304)
[2021-04-13] MEDS: methylPREDNISolone SOD SUC 40 MG/1 ML VIAL IV SCH (06:15)
[2021-04-13] MEDS: MONTELUKAST 10 MG TABLET PO SCH (10:52)
[2021-04-13] MEDS: acetaZOLAMIDE 250 MG TABLET PO SCH (10:52)
[2021-04-13] MEDS: SERTRALINE 100 MG TABLET PO SCH (10:52)
[2021-04-13] MEDS: PANTOPRAZOLE 40 MG TABLET PO SCH (10:52)
[2021-04-13] MEDS: ENOXAPARIN 40 MG/0.4 ML SYRINGE SUBCUT SCH (10:53)
[2021-04-13] MEDS: ALBUTEROL 0.4 MG/ML 30 ML/BOTTLE PO SCH (10:53)
[2021-04-13 12:05] VITALS: BP 123/71
== END 2021-04-13 12:50 | disposition home or self-care (01) | DRG 190 ==
LOC: EDUNIT# → N.EDINP 19:22 → N.ED 19:22 → N.5E 23:59 → SUATTDRO 04-11 12:43
PROVIDERS: ADMIT Internal Medicine Geriatric Medicine; ATTEND Internal Medicine